=== PATIENT | female | born 1960 | race Caucasian/White ===

== ENCOUNTER → 2016-11-21 | Outpatient (CLI) | payer OTHER ==
[~2016-11-21] MED LIST: ACET-1256 PO; ACET-749 PO; CLC100 PO; OPTIRAY 320 IV PRN; PRLSR20 PO
--- NOTE | 2016-11-21 14:23 | DIAGNOSTIC IMAGING REPORT ---
ABD/PELVIS COMBO CLINICAL HISTORY: 56 years-old Female presenting with RENAL CELL CANCER. R/O METS. TECHNIQUE: Multidetector CT of the abdomen and pelvis was performed before and after the administration of intravenous contrast. IV contrast: 120 mL of Optiray 320. A dose lowering technique was used consistent with the principles of ALARA (as low as reasonably achievable). COMPARISON: MR from 2015. CT DOSE: The estimated cumulative dose is 1156.74 mGy.cm. FINDINGS: [employer] topogram: Unremarkable. Lung bases: Lung bases clear. No pericardial or pleural effusion. Liver: Normal morphology. Multiple hepatic lesions enumerated below: -Well-defined lobular hypodense lesion in segment 2 measures 5.3 cm, stable to slightly enlarged from prior. -Multiple lesion scattered throughout the liver previously shown to be cystic on contrast-enhanced MR, consistent with hepatic cysts or hamartomas. These are unchanged from prior. Hepatic vasculature patent. Biliary: No intrahepatic or extrahepatic biliary ductal dilatation. Normal gallbladder. Pancreas: Normal. Spleen: Normal. Adrenal glands: Normal. Kidneys and ureters: Postsurgical changes along the posterior upper pole of the right kidney from regional excision of the solid renal mass. No residual suspicious nodularity. No hydronephrosis. Ureters normal. Gastrointestinal tract: Mild apparent thickening of the gastric antrum. Bowel otherwise normal. No bowel obstruction. Peritoneal cavity: No free fluid or intraperitoneal gas. Bladder: Incompletely evaluated secondary to underdistention. Pelvic organs: Uterus and ovaries normal. Vasculature: Aorta and IVC patent and normal in caliber. Lymph nodes: No enlarged lymph nodes in the abdomen or pelvis. Abdominal wall: Normal. Musculoskeletal: Normal. IMPRESSION: 1. Postsurgical changes of regional excision of the solid right renal mass. No residual suspicious nodularity. No lymphadenopathy or evidence of metastatic disease. 2. Dominant 5.3 cm cystic lesion in the left hepatic lobe most likely represents a hepatic cyst or hamartoma, although biliary cystadenoma/cystadenocarcinoma cannot be excluded. Its stability since the prior exam in 2014 heavily favors a benign etiology. Electronically signed by: Marshal Luke M.D. 11/21/2016 2:22 PM Dictated Date/Time: 11/21/2016 2:10 PM
== END | disposition home or self-care (01) ==
LOC: C.CTS 13:33
PROVIDERS: ATTEND Urology
DX: N28.89 Other specified disorders of kidney and ureter (principal); K76.89 Other specified diseases of liver